=== PATIENT | male | born 1995 | race Caucasian/White ===

== ENCOUNTER → 2016-10-06 | Outpatient (CLI) | payer OTHER ==
[~2016-10-06] MED LIST: CETI5TAB11 PO
--- NOTE | 2016-10-06 13:47 | DI ---
Indication: ITS.REASON: S89.92XA INJURY PROCEDURE: MRI KNEE LEFT W/O CONTRAST: Encounter: Initial Comparison: None Technique: Multiplanar multisequence MR imaging of the left knee was performed in the sagittal, axial and coronal planes. Findings: The osseous structures of the left knee are of normal marrow signal intensity and contour and maintain normal anatomic alignment at the articular surfaces. There is no evidence of occult bony injury. The joint spaces are well-maintained as is the articular cartilage. The anterior and posterior horns of the medial and lateral meniscal cartilages appear intact. The medial and lateral collateral ligaments appear intact. The ACL appears mild thickening with minimal signal edema along its course but no evidence of discontinuity or irregularity. This finding suggests ACL sprain. There is also small amount of fluid in the intercondylar notch along the course of the ACL. The posterior cruciate ligament appears intact. The medial and lateral patellofemoral ligament/retinacula appear intact. The quadriceps and patellar tendons appear intact. There is small to moderate suprapatellar bursa effusion and there is plica formation in the medial suprapatella bursa compartment. There is a small intercondylar notch cyst measuring 10 x 11 mm. There is no evidence of a Sanz's cyst. IMPRESSION: 1. Mild ACL sprain with small amount of fluid in the intercondylar notch. There is also small intracondylar notch cyst likely representing a ganglion cyst. 2. Small to moderate size suprapatellar bursa effusion with plica formation in the medial compartment suggesting chronicity. 3. No evidence of occult bony injury. .
== END ==
LOC: IMA 07:37
PROVIDERS: ATTEND Family Medicine Sports Medicine
DX: M23.352 Other meniscus derangements, posterior horn of lateral meniscus, left knee (principal); M23.322 Other meniscus derangements, posterior horn of medial meniscus, left knee; M85.862 Other specified disorders of bone density and structure, left lower leg; M25.462 Effusion, left knee